=== PATIENT | female | born 1990 | race African-American/Black ===

== ENCOUNTER 2016-10-29 13:29 | Emergency (ER) | payer OTHER ==
[~2016-10-29] VITALS: Ht 157.5 cm; Wt 77.1 kg
[~2016-10-29 13:29] MED LIST: AMOXICILLI400 MG/5 M PO; DIFLUCAN150 M1 PO; DIFLUCAN150 MG PO; FERROUS GLUCON324 MG PO; FLOMAX(MONOGRA0.4 MG PO; LIDOCAINE VISCO20 ML PO; MEDROL DOSEPAK1 PAC PO; PANTOPRAZOLE SO40 MG PO; PERCOCET 325 MG1 TA2 PO
--- NOTE | 2016-10-29 14:15 | ED GENERAL ADULT ---
History of Present Illness General Chief Complaint: General Adult Stated Complaint: "MY BLOOD SUGAR IS HIGH" Source: patient, friend Exam Limitations: no limitations Vital Signs & Intake/Output Vital Signs & Intake/Output Vital Signs Date Time Temp Pulse Resp B/P Pulse O2 O2 Flow FiO2 Ox Delivery Rate 10/29 1534 98.6 76 18 126/84 98 Room Air 10/29 1446 Room Air 10/29 1340 98.7 81 20 137/81 97 Room Air Allergies Coded Allergies: shellfish derived (Severe, ANAPHYLAXIS 01/08/16) lactose (GI UPSET 01/08/16) Reconcile Medications Ferrous Gluconate 324 MG TAB 1 TAB PO BID ANEMIA (Reported) Fluconazole (Diflucan) 150 MG TABLET 1 TAB PO ONCE YEAST REPEAT IN 72 HRS IF STILL SYMPTOMATIC Fluconazole (Diflucan) 100 MG TABLET 1 TAB PO BID YEAST INFECTION Pantoprazole Sodium 40 MG TABLET.DR 1 TAB PO DAILY AC GI (Reported) Tamsulosin Hydrochloride (Flomax) 0.4 MG CAP.ER.24H 1 CAP PO DAILY KIDNEY STONE Triage Note: PT TO ED C/O HIGH BLOOD SUGAR. STATES SHE IS NEW DIABETIC AND TAKES METFORMIN. TOOK BLOODSUGAR AROUND 0600 THIS AM AND IT READ "HI". C/O THIRST AND FREQUENT URINATION. FINGERSTICK 156. PT ALSO C/O ? INFECTION "DOWN THERE". STATES ? YEAST INFECTION OR STI. HAS HAD UNPROTECTED SEX, ALSO UNSURE IF . STATES HER "CLITORIS FEELS DRY". Triage Nurses Notes Reviewed? yes : No Patient currently breastfeeds: No HPI: Patient was recently diagnosed with diabetes and is on metformin. Patient states that she was at a democrat last night and had a left eating drink. Since then she has noticed that she has been being a lot. Patient checked her fingerstick and it just read high. Patient began to drink a lot of water and comes into the emergency room for evaluation. Patient's other complaint is a white itchy vaginal discharge that she's had for the past 2 days. Similar symptoms in the past when she's had a yeast infection. Patient states that she is concerned because she recently had unprotected sex so wants to be sure that it is not an STD. There is no dysuria or vaginal pain. There are no fevers or chills. There is no nausea or vomiting. Past History Travel History Traveled to [place] past 21 day No Medical History Any Pertinent Medical History? 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 No Review of Systems Review of Systems Constitutional: Reports: no symptoms. EENTM: Reports: no symptoms. Respiratory: Reports: no symptoms. Cardiovascular: Reports: no symptoms. GI: Reports: no symptoms. Genitourinary: Reports: see HPI, discharge. Musculoskeletal: Reports: no symptoms. Skin: Reports: no symptoms. Neurological/Psychological: Reports: no symptoms. Hematologic/Endocrine: Reports: no symptoms. Immunologic/Allergic: Reports: no symptoms. All Other Systems: Reviewed and Negative Physical Exam Physical Exam General Appearance: well developed/nourished, alert, awake, mild distress Head: atraumatic, normal appearance Eyes: Bilateral: PERRL, EOMI. Ears, Nose, Throat: normal pharynx, normal ENT inspection, hearing grossly normal Neck: normal inspection, supple, full range of motion Respiratory: normal breath sounds, chest non-tender, no respiratory distress, lungs clear Cardiovascular: regular rate/rhythm, normal peripheral pulses Gastrointestinal: normal bowel sounds, soft, non-tender, no organomegaly Back: normal inspection, normal range of motion Extremities: normal inspection, normal capillary refill, normal range of motion, no edema Neurologic/Psych: no motor/sensory deficits, awake, alert, oriented x 3, normal gait, normal mood/affect Skin: intact, normal color, warm/dry Comments: PELVIC: THICK WHITE DISCHARGE, NO CERVICAL MOTION TENDERNESS Core Measures ACS in differential dx? No CVA/TIA Diagnosis: No Severe Sepsis Present: No Septic Shock Present: No Progress Differential Diagnoses I considered the following diagnoses in my evaluation of the patient: [ HYPERGLYCEMIA, STD, YEAST] Plan of Care: Orders Procedure Date/time Status CHLAMYDIA-GC DNA PROBE 10/29 1414 Active COMPREHENSIVE METABOLIC PANEL 10/29 1414 Complete CBC WITHOUT DIFFERENTIAL 10/29 141 Complete URINE 10/29 1344 Active URINALYSIS 10/29 1344 Active Laboratory Tests 10/29/16 1520: Urine Color Pending, Urine Clarity Pending, Urine pH Pending, Ur Specific [place] Pending, Urine Protein Pending, Urine Ketones Pending, Urine Nitrite Pending, Urine Bilirubin Pending, Urine Urobilinogen Pending, Ur Leukocyte Esterase Pending, Ur Microscopic Pending, Urine Hemoglobin Pending, Urine Glucose Pending, Urine Test Pending 10/29/16 1420: Anion Gap 14, Estimated GFR > 60, BUN/Creatinine Ratio 11.7, Glucose 119 H, Calcium 9.6, Total Bilirubin 0.6, AST 14, ALT 34, Alkaline Phosphatase 124, Total Protein 8.0, Albumin 4.4, Globulin 3.6, Albumin/Globulin Ratio 1.2, CBC w Diff NO MAN DIFF REQ, RBC 5.12, MCV 75.7 L, MCH 24.1 L, RDW 14.4, MPV 8.0, Gran % 60.1, Lymphocytes % 32.7, Monocytes % 4.5, Eosinophils % 2.0, Basophils % 0.7, Absolute Granulocytes 5.4, Absolute Lymphocytes 2.9, Absolute Monocytes 0.4 , Absolute Eosinophils 0.2, Absolute Basophils 0.1, PUBS MCHC 31.9 L Microbiology 10/29 1520 URINE ROUT: GC DNA Probe - RECD 10/30 1519 URINE ROUT: Chlamydia DNA Probe (SETH) - RECD Initial ED EKG: none Departure Departure Disposition: HOME OR SELF CARE Condition: Stable Clinical Impression Primary Impression: Vaginal candidiasis Secondary Impressions: Hyperglycemia Referrals: RASHMI RODRIGUEZ DO (PCP/Family) Additional Instructions: TAKE DIFLUCAN TWICE A DAY RETURN IF SYMPTOMS WORSEN OR FOR ANY CONCERNS Departure Forms: Customer Survey General Discharge Information Prescriptions: Current Visit Scripts Fluconazole (Diflucan) 1 TAB PO BID #10 TAB Critical Care Note Critical Care Note Critical Care Time: non-applicable
[2016-10-29 14:32] LABS: ABSOLUTE BASOPHIL COUNT 0.1 /CUMM (0.0-0.2); ABSOLUTE EOSINOPHIL COUNT 0.2 /CUMM (0.0-0.7); ABSOLUTE GRANULOCYTE CT 5.4 /CUMM (1.4-6.5); ABSOLUTE LYMPH COUNT 2.9 /CUMM (1.2-3.4); ABSOLUTE MONOCYTE COUNT 0.4 /CUMM (0.10-0.60); BASOPHIL % 0.7 % (0.0-2.0); GRANULOCYTE % 60.1 % (42.2-75.2); HEMATOCRIT 38.8 % (37-47); MEAN CORPUSCULAR HGB 24.1 PG (27.0-31.0); MEAN CORPUSCULAR HGB CONC 31.9 G/DL (33.0-37.0); MEAN CORPUSCULAR VOLUME 75.7 FL (81.0-99.0); PLATELET COUNT 322 /CUMM (130-400); RBC DISTRIBUTION WIDTH 14.4 % (11.5-14.5); RED BLOOD CELL CT 5.12 /CUMM (4.20-5.40)
[2016-10-29 15:34] VITALS: BP 126/84
[2016-10-29] MEDS ORDERED: DIFLUCAN100 M1 PO (15:36)
== END 2016-10-29 15:41 ==
LOC: ERH 13:29
PROVIDERS: Emergency Medicine
DX: B37.3 Candidiasis of vulva and vagina (principal); E11.65 Type 2 diabetes mellitus with hyperglycemia; Z79.84 Long term (current) use of oral hypoglycemic drugs
CPT/HCPCS: 81001; 81025; 87491; 87591

== ENCOUNTER 2016-11-13 22:14 | Emergency (ER) | payer OTHER ==
[~2016-11-13] VITALS: Ht 157.5 cm; Wt 77.1 kg
[~2016-11-13 22:14] MED LIST changes: +DIFLUCAN100 M1 PO
--- NOTE | 2016-11-13 22:55 | ED AMS/SEIZURE/WEAK/DIZZY ---
History of Present Illness General Chief Complaint: Nausea, Vomiting, Diarrhea Stated Complaint: VOMITING,DIARRHEA ALL DAY, PT DIABETIC, LOW READ Source: patient Exam Limitations: no limitations Vital Signs & Intake/Output Vital Signs & Intake/Output Vital Signs Date Time Temp Pulse Resp B/P B/P Pulse O2 O2 Flow FiO2 Mean Ox Delivery Rate 11/14 0201 98.5 78 18 101/64 97 Room Air 11/13 2227 98.5 87 20 120/77 96 Room Air ED Intake and Output 11/14 0000 11/13 1200 Intake Total 0 Output Total Balance 0 Intake, Oral 0 Patient 170 lb Weight Weight Reported by Patient Measurement Method Allergies Coded Allergies: shellfish derived (Severe, ANAPHYLAXIS 11/13/16) lactose (GI UPSET 11/13/16) Reconcile Medications Ferrous Gluconate 324 MG TAB 1 TAB PO BID ANEMIA (Reported) Fluconazole (Diflucan) 150 MG TABLET 1 TAB PO ONCE YEAST REPEAT IN 72 HRS IF STILL SYMPTOMATIC Fluconazole (Diflucan) 100 MG TABLET 1 TAB PO BID YEAST INFECTION Ondansetron (Zofran Odt) 4 MG TAB.RAPDIS 1 TAB SL TID PRN vomiting Pantoprazole Sodium 40 MG TABLET.DR 1 TAB PO DAILY AC GI (Reported) Tamsulosin Hydrochloride (Flomax) 0.4 MG CAP.ER.24H 1 CAP PO DAILY KIDNEY STONE Triage Note: TRIAGE: PT TO ER C/C N/V/D ALL DAY, FEELS WEAK. PMHX DIABETES. BLOOD SUGAR READING WAS 300 THIS MORNING. STATES "I FEEL LIKE IT'S LOW" NOW BUT DID NOT RECHECK HER BLOOD SUGAR PRIOR TO COMING TO THE ER. F/S 124 AT TRIAGE. Triage Nurses Notes Reviewed? yes Onset: Gradual Duration: day(s):, waxing and waning Timing: recent history Injury Environment: home Severity: moderate Modifying Factors: Improves With: rest. Associated Symptoms: nasuea, vomiting : No Patient currently breastfeeds: No HPI: 26 yo woman h/o diabetes, "I've been on metformin, but it always makes me vomit... My sugar was 200 earlier today." Past History Travel History Traveled to [place] past 21 day No Medical History Any Pertinent Medical History? 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 No Review of Systems Review of Systems Constitutional: Reports: no symptoms. EENTM: Reports: no symptoms. Respiratory: Reports: no symptoms. Cardiovascular: Reports: no symptoms. GI: Reports: no symptoms. Genitourinary: Reports: no symptoms. Musculoskeletal: Reports: no symptoms. Skin: Reports: no symptoms. Neurological/Psychological: Reports: no symptoms. Hematologic/Endocrine: Reports: no symptoms. Immunologic/Allergic: Reports: no symptoms. All Other Systems: Reviewed and Negative Physical Exam Physical Exam General Appearance: well developed/nourished, mild distress Head: atraumatic, normal appearance Eyes: Bilateral: normal appearance. Ears, Nose, Throat: normal pharynx, normal ENT inspection, hearing grossly normal Neck: normal inspection, supple, full range of motion Respiratory: normal breath sounds, chest non-tender, no respiratory distress, quiet respiration, lungs clear Cardiovascular: regular rate/rhythm Gastrointestinal: normal bowel sounds, soft, non-tender, no tenderness to deep palpation Back: normal inspection Extremities: normal range of motion Neurologic/Psych: no motor/sensory deficits, awake, alert, oriented x 3 Skin: intact, normal color, warm/dry Core Measures ACS in differential dx? No CVA/TIA Diagnosis: No Severe Sepsis Present: No Septic Shock Present: No Progress Differential Diagnosis: medication side effect vs viral syndrome vs other. Plan of Care: Orders Procedure Date/time Status LIPASE 11/13 2253 Complete HEPATIC FUNCTION PANEL 11/13 2253 Complete HUMAN BETA HCG SCREEN 11/13 2253 Complete CBC WITHOUT DIFFERENTIAL 11/13 2253 Complete BASIC METABOLIC PANEL 11/13 2253 Complete AMYLASE 11/13 2253 Complete Laboratory Tests 11/13/16 2306: Anion Gap 13, Estimated GFR > 60, BUN/Creatinine Ratio 11.7, Glucose 119 H, Calcium 9.2, Total Bilirubin 0.6, Direct Bilirubin 0.2, AST 16, ALT 31, Alkaline Phosphatase 109, Total Protein 7.4, Albumin 4.1, Amylase 51, Lipase 86, Total Beta HCG NEGATIVE, CBC w Diff NO MAN DIFF REQ, RBC 4.96, MCV 75.7 L, MCH 24.3 L, RDW 14.8 H, MPV 8.2, Gran % 81.1 H, Lymphocytes % 14.1 L, Monocytes % 2.5, Eosinophils % 2.3, Basophils % 0 L, Absolute Granulocytes 7.2 H, Absolute Lymphocytes 1.3, Absolute Monocytes 0.2, Absolute Eosinophils 0.2, Absolute Basophils 0, PUBS MCHC 32.1 L 11/13/16 2254: Urine Color Cancelled, Urine Clarity Cancelled, Urine pH Cancelled, Ur Specific [place] Cancelled, Urine Protein Cancelled, Urine Ketones Cancelled, Urine Nitrite Cancelled, Urine Bilirubin Cancelled, Urine Urobilinogen Cancelled, Ur Leukocyte Esterase Cancelled, Ur Microscopic Cancelled, Urine Hemoglobin Cancelled, Urine Glucose Cancelled Initial ED EKG: none Departure Departure Disposition: HOME OR SELF CARE Condition: Stable Clinical Impression Primary Impression: Vomiting Secondary Impressions: Diabetes, Medication side effect Referrals: RASHMI RODRIGUEZ DO (PCP/Family) Departure Forms: Customer Survey General Discharge Information Prescriptions: Current Visit Scripts Ondansetron (Zofran Odt) 1 TAB SL TID PRN vomiting #10 TAB Ref 1 Comments 11/14/16, 1:49... Pt tolerated fluids, feels better... upon repeat exam, no tenderness to deep palpation.... encouraged close follow up with pmd or return to ed if symptoms recur. pt to stop metformin until follow up.
[2016-11-13 23:22] LABS: ABSOLUTE BASOPHIL COUNT 0 /CUMM (0.0-0.2); ABSOLUTE EOSINOPHIL COUNT 0.2 /CUMM (0.0-0.7); ABSOLUTE GRANULOCYTE CT 7.2 /CUMM (1.4-6.5); ABSOLUTE LYMPH COUNT 1.3 /CUMM (1.2-3.4); ABSOLUTE MONOCYTE COUNT 0.2 /CUMM (0.10-0.60); BASOPHIL % 0 % (0.0-2.0); EOSINOPHIL % 2.3 % (0-5); GRANULOCYTE % 81.1 % (42.2-75.2); HEMATOCRIT 37.5 % (37-47); MEAN CORPUSCULAR HGB 24.3 PG (27.0-31.0); MEAN CORPUSCULAR HGB CONC 32.1 G/DL (33.0-37.0); MEAN CORPUSCULAR VOLUME 75.7 FL (81.0-99.0); MEAN PLATELET VOLUME 8.2 FL (7.4-10.4); PLATELET COUNT 307 /CUMM (130-400); RBC DISTRIBUTION WIDTH 14.8 % (11.5-14.5); RED BLOOD CELL CT 4.96 /CUMM (4.20-5.40); WHITE BLOOD CELL COUNT 8.9 /CUMM (4.8-10.8)
[2016-11-13] MEDS ORDERED: ZOFRAN ODT4 M1 SL (23:38)
[2016-11-14 02:01] VITALS: BP 101/64
== END 2016-11-14 02:28 ==
LOC: ERH 22:14
PROVIDERS: Pediatrics
DX: T38.3X5A Adverse effect of insulin and oral hypoglycemic [antidiabetic] drugs, initial encounter (principal); R11.10 Vomiting, unspecified; E11.9 Type 2 diabetes mellitus without complications
CPT/HCPCS: 96361; 96374; J2765; J3101

== ENCOUNTER 2017-01-01 01:42 | Emergency (ER) | payer OTHER ==
[~2017-01-01 01:42] MED LIST changes: +ZOFRAN ODT4 M1 SL
[2017-01-01 02:10] VITALS: BP 101/69
[2017-01-01] MEDS ORDERED: KEFLEX500 M1 PO (02:25)
--- NOTE | 2017-01-01 02:26 | ED SKIN/ALLERGY COMPLAINT ---
History of Present Illness General Chief Complaint: General Adult Stated Complaint: "PER PT BOTH BREAST PIERCING INFECTED" Source: patient, old records Exam Limitations: no limitations Vital Signs & Intake/Output Vital Signs & Intake/Output Vital Signs Date Time Temp Pulse Resp B/P B/P Pulse O2 O2 Flow FiO2 Mean Ox Delivery Rate 01/01 0210 97.2 71 22 101/69 98 Allergies Coded Allergies: shellfish derived (Severe, ANAPHYLAXIS 11/13/16) lactose (GI UPSET 11/13/16) Reconcile Medications Cephalexin (Keflex) 500 MG CAPSULE 1 CAP PO TID cellulitis Ferrous Gluconate 324 MG TAB 1 TAB PO BID ANEMIA (Reported) Fluconazole (Diflucan) 150 MG TABLET 1 TAB PO ONCE YEAST REPEAT IN 72 HRS IF STILL SYMPTOMATIC Fluconazole (Diflucan) 100 MG TABLET 1 TAB PO BID YEAST INFECTION Glimepiride 2 MG TABLET 1 TAB PO DAILY DM (Reported) Ondansetron (Zofran Odt) 4 MG TAB.RAPDIS 1 TAB SL TID PRN vomiting Pantoprazole Sodium 40 MG TABLET.DR 1 TAB PO DAILY GERD (Reported) Pantoprazole Sodium 40 MG TABLET.DR 1 TAB PO DAILY AC GI (Reported) Tamsulosin Hydrochloride (Flomax) 0.4 MG CAP.ER.24H 1 CAP PO DAILY KIDNEY STONE Triage Note: PER PT BILAT NIPPLE PIERCINGS X 3 WEEKS ?INFECTED, ALSO RT FOOT SOLE LAC, PT IS A DIABETIC AND TOLD TO COME TO ED. Triage Nurses Notes Reviewed? yes Onset: yesterday Duration: day(s):, constant, continues in ED Timing: recent history Severity: mild Location: torso (breasts piercing) Possible Factors: piercing No Modifying Factors: none Associated Symptoms: rash LMP (ages 10-50): unknown : No Patient currently breastfeeds: No HPI: 1 day prior to admission patient noted crusty discharge on bilateral nipple piercing and redness of breasts about her nipples. She denies fever chills nausea vomiting diarrhea abdominal pain chest pain shortness breath headache dysuria bleeding. Past History Travel History Traveled to [place] past 21 day No Medical History Any Pertinent Medical History? 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 No Review of Systems Review of Systems Constitutional: Reports: no symptoms. EENTM: Reports: no symptoms. Respiratory: Reports: no symptoms. Cardiovascular: Reports: no symptoms. GI: Reports: no symptoms. Genitourinary: Reports: no symptoms. Musculoskeletal: Reports: no symptoms. Skin: Reports: see HPI, rash. Neurological/Psychological: Reports: no symptoms. Hematologic/Endocrine: Reports: no symptoms. Immunologic/Allergic: Reports: no symptoms. All Other Systems: Reviewed and Negative Physical Exam Physical Exam General Appearance: well developed/nourished, alert, awake, anxious, mild distress Head: atraumatic Eyes: Bilateral: PERRL, EOMI. Ears, Nose, Throat: normal pharynx, normal ENT inspection, hearing grossly normal Neck: normal inspection, supple Respiratory: normal breath sounds Cardiovascular: regular rate/rhythm Peripheral Pulses: 4+ carotid (R), 4+ carotid (L) Gastrointestinal: soft, non-tender Back: normal inspection Extremities: normal inspection, normal range of motion, no edema Neurologic/Psych: awake, alert, oriented x 3, normal mood/affect Reflexes: 2+: bicep (R), bicep (L). Skin: intact, rash Skin Problem Location: nipples and breast bilateral Skin Problem Character: erythema Lymphatic: no anterior cervical hammad Progress Differential Diagnosis: abscess/cellulitis, allergic reaction Plan of Care: Keflex Departure Departure Time of Disposition: 223 Disposition: HOME OR SELF CARE Condition: Stable Clinical Impression Primary Impression: Infected piercing of trunk Referrals: RASHMI RODRIGUEZ DO (PCP/Family) Additional Instructions: Remove your piercings Departure Forms: Customer Survey General Discharge Information Prescriptions: Current Visit Scripts Cephalexin (Keflex) 1 CAP PO TID #30 CAP
[2017-01-01] MEDS ORDERED: GLIMEPIRIDE2 MG PO (02:42)
[2017-01-01] MEDS ORDERED: PANTOPRAZOLE SO40 M1 PO (02:42)
[2017-01-01] MEDS ORDERED: METFORMIN HCL750 M1 PO (02:42)
== END 2017-01-01 02:44 ==
LOC: ERH 01:42
DX: L08.9 Local infection of the skin and subcutaneous tissue, unspecified (principal)

== ENCOUNTER 2018-04-13 03:32 | Emergency (ER) | payer OTHER ==
[~2018-04-13] VITALS: Ht 154.9 cm; Wt 68.5 kg
[~2018-04-13 03:32] MED LIST changes: +BACLOFEN10 M1 PO; +FOLIC ACID1 M1 PO; +GLIMEPIRIDE2 MG PO; +IBUPROFEN600 M1 PO; +IRON325 M3 PO; +JANUMET XR 1001 EACH PO; +KEFLEX500 M1 PO; +MAGNESIUM500 M2 PO; +METFORMIN HCL750 M1 PO; +PANTOPRAZOLE SO40 M1 PO; +VITAMIN B-121000 MC3 PO; +VSL#3 CAPSULE1 EACH PO; +ZITHROMAX250 M2 PO
--- NOTE | 2018-04-13 03:48 | ED GI/GU/ABDOMINAL COMPLAINT ---
History of Present Illness General Chief Complaint: Female Urogenital Problems Stated Complaint: VAGINAL BLEEDING,HIGH BP Source: patient Exam Limitations: no limitations Vital Signs & Intake/Output Vital Signs & Intake/Output Vital Signs Date Time Temp Pulse Resp B/P B/P Pulse O2 O2 Flow FiO2 Mean Ox Delivery Rate 04/13 0531 97.2 88 18 128/72 98 Room Air 04/13 0350 98.8 88 18 109/76 98 Room Air Allergies Coded Allergies: shellfish derived (Severe, ANAPHYLAXIS 11/13/16) lactose (GI UPSET 11/13/16) Reconcile Medications Azithromycin (Zithromax) 250 MG TABLET 1 DP PO AD URI 2 the first day followed by 1 for days 2-5 Baclofen 10 MG TABLET 1-2 TAB PO TID PRN muscle strain Cyanocobalamin (Vitamin B-12) (Unknown Strength) TABLET (Unknown Dose) PO DAILY SUPPLEMENT (Reported) Ferrous Sulfate (IRON) 325 MG (65 MG IRON) TABLET 1 TAB PO TID ANEMIA TAKE WITH STOOL SOFTNER Fluconazole (Diflucan) 150 MG TABLET 1 TAB PO ONCE yeats infection Folic Acid 1 MG TABLET 1 TAB PO DAILY SUPPLEMENT (Reported) Ibuprofen 600 MG TABLET 1 TAB PO Q6PRN PRN pain with food Lactobac #2-S. Therm-Bifido #1 (Vsl#3 Capsule) 112.5 BILLION CELL CAPSULE 1 CAP PO DAILY PROBIOTIC (Reported) Magnesium Oxide (Magnesium) 500 MG CAPSULE 1 CAP PO BID HYPOMAG Pantoprazole Sodium 40 MG TABLET.DR 1 TAB PO DAILY GERD (Reported) Sitagliptin Phos/Metformin HCl (Janumet XR 100-1,000 MG Tablet) 100 MG-1,000 MG TBMP.24HR 1 TAB PO DAILY DM (Reported) Triage Nurses Notes Reviewed? yes ? N Is pt currently ? No HPI: Patient presents for evaluation of a high glucose over the past 2 weeks. Patient states that she is a diabetic, [id number]. In addition she states she treated herself with itsn-eby-huiwqtz yeast medication and a dose of fluconazole from a prior prescription because she began having signs of yeast infection. Beginning last night she had some vaginal bleeding although her last menstrual period began on the seventh and seemed normal. Past History Travel History Traveled to [place] past 21 day No Medical History Any Pertinent Medical History? 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 No Review of Systems Review of Systems Constitutional: Reports: no symptoms. EENTM: Reports: no symptoms. Respiratory: Reports: no symptoms. Cardiovascular: Reports: no symptoms. GI: Reports: no symptoms. Genitourinary: Reports: see HPI. Musculoskeletal: Reports: no symptoms. Skin: Reports: no symptoms. Neurological/Psychological: Reports: no symptoms. Hematologic/Endocrine: Reports: no symptoms. Immunologic/Allergic: Reports: no symptoms. All Other Systems: Reviewed and Negative Physical Exam Physical Exam Gastrointestinal: see below Comments: Gen.: Well-nourished, well-developed, no acute respiratory distress. Head: Normocephalic, atraumatic. Eyes: Normal inspection bilaterally Ears: Normal inspection bilaterally Nose: Normal inspection Throat/mouth : Moist mucosa Neck: Supple, full range of motion, no goiter Lungs: Quiet respirations Back: Normal range of motion : Extremities: Normal range of motion grossly, no cyanosis clubbing or edema of the upper extremities Neurologic: Cranial nerves grossly intact, speech is clear Skin: warm and dry Psychiatric: Calm, cooperative, no apparent delusions or hallucinations Pelvic: Small amount of solid white material removed from her uterus likely secondary to the [id number] antifungal medication patient used for possible vaginal yeast infection. Dark blood emanating from the cervix. There is no cervical motion tenderness or palpable adnexal masses. There is otherwise no discharge to suggest cervicitis or vaginitis. Core Measures ACS in differential dx? No Sepsis Present: No Sepsis Focused Exam Completed? No Progress Differential Diagnosis: UTERINE BLEEDING, SPONTANEOUS , ECTOPIC , std, VAGINITIS Plan of Care: Orders Procedure Date/time Status Add-on Test (ER Only) 04/13 457 Active Add-on Test (ER Only) 04/13 454 Active Add-on Test (ER Only) 04/13 451 Active HUMAN BETA HCG TITRE 04/13 445 Complete TYPE & SCREEN (NOT X-MATCH) 04/13 445 Complete URINALYSIS 04/13 355 Complete SERUM OSMOLALITY 04/13 035 Complete LIPASE 04/13 035 Complete COMPREHENSIVE METABOLIC PANEL 04/13 355 Complete CBC WITHOUT DIFFERENTIAL 04/13 355 Complete ACETONE 04/13 355 Complete Laboratory Tests 04/13/18451: Beta HCG, Quant Cancelled 04/13/18444: Anion Gap 10, Estimated GFR > 60, BUN/Creatinine Ratio 15.7, Glucose 288 H, Serum Osmolality 306 H, Calcium 9.6, Total Bilirubin 0.2, AST 12 L, ALT 22, Alkaline Phosphatase 100, Total Protein 7.5, Albumin 4.3, Globulin 3.2, Albumin/ Globulin Ratio 1.3, Lipase 163, Beta HCG, Quant < 2.4, CBC w Diff NO MAN DIFF REQ, RBC 4.82, MCV 73.8 L, MCH 23.6 L, MCHC 32.0 L, RDW 15.8 H, MPV 8.4, Gran % 73.1, Lymphocytes % 21.4, Monocytes % 4.0, Eosinophils % 0.9, Basophils % 0.6, Absolute Granulocytes 5.9, Absolute Lymphocytes 1.7, Absolute Monocytes 0.3 , Absolute Eosinophils 0.1, Absolute Basophils 0, Acetone Level NEGATIVE 04/13/18414: Urine Color YEL, Urine Clarity HAZY H, Urine pH 6.0, Ur Specific [place] 1.015, Urine Protein NEG, Urine Ketones NEG, Urine Nitrite NEG, Urine Bilirubin NEG, Urine Urobilinogen 0.2, Ur Leukocyte Esterase NEG, Ur Microscopic SEDIMENT EXAMINED, Urine RBC PACKD H, Ur Epithelial Cells OCCAS, Urine Bacteria FEW H, Urine Hemoglobin LARGE H, Urine Glucose >=1000 H Initial ED EKG: none Comments: 04/13/2018 4:52:24 AM speculum examination revealed tissue emanating from the cervical os along with vaginal blood. I am awaiting a ring clamp in order to remove the tissue for pathologic testing. Departure Departure Disposition: HOME OR SELF CARE Condition: Stable Clinical Impression Primary Impression: Uterine bleeding Referrals: Crista Gregory DO (PCP/Family) Additional Instructions: Please follow-up with your DIRECTOR [employer]USE[employer] doctor as soon as possible for reevaluation of your uterine bleeding. Return if any concerns or sudden worsening. Please note that there might be incidental findings in your evaluation that are unrelated to the current emergency department visit. Please notify your primary care doctor about this emergency department visit in order to obtain and review all of the testing performed so that these incidental findings can be monitored as needed. If you had an x-ray performed, please understand that some fractures or other findings may not be seen on the initial set of x-rays. If your symptoms persist you might need a repeat set of x-rays to check for such a fracture. If you had a laceration evaluated, please understand that foreign bodies such as glass or wood may not be visible to the naked eye or on plain x-rays. If the wound becomes red, swollen, increasingly more painful or if there is any drainage from the wound, please have it reevaluated by a physician for the possibility of a retained foreign body. If you're unable to follow up as outlined in the discharge instructions please return to the emergency department. Thank you for choosing the [facility] for your care. It was a pleasure to serve you today. Lam Richardson M.D. [facility] Departure Forms: Customer Survey General Discharge Information
[2018-04-13 05:02] LABS: ABSOLUTE BASOPHIL COUNT 0 /CUMM (0.0-0.2); ABSOLUTE EOSINOPHIL COUNT 0.1 /CUMM (0.0-0.7); ABSOLUTE GRANULOCYTE CT 5.9 /CUMM (1.4-6.5); ABSOLUTE LYMPH COUNT 1.7 /CUMM (1.2-3.4); ABSOLUTE MONOCYTE COUNT 0.3 /CUMM (0.10-0.60); BASOPHIL % 0.6 % (0.0-2.0); EOSINOPHIL % 0.9 % (0-5); GRANULOCYTE % 73.1 % (42.2-75.2); HEMATOCRIT 35.6 % (37-47); MEAN CORPUSCULAR HGB 23.6 PG (27.0-31.0); MEAN CORPUSCULAR VOLUME 73.8 FL (81.0-99.0); MEAN PLATELET VOLUME 8.4 FL (7.4-10.4); PLATELET COUNT 358 /CUMM (130-400); RBC DISTRIBUTION WIDTH 15.8 % (11.5-14.5); RED BLOOD CELL CT 4.82 /CUMM (4.20-5.40); WHITE BLOOD CELL COUNT 8.1 /CUMM (4.8-10.8)
[2018-04-13 07:45] VITALS: BP 124/70
== END 2018-04-13 07:56 ==
LOC: ERH 03:32
PROVIDERS: Emergency Medicine
DX: N93.9 Abnormal uterine and vaginal bleeding, unspecified (principal); E11.9 Type 2 diabetes mellitus without complications
CPT/HCPCS: 81001; 96372